=== PATIENT | female | born 1965 | race African-American/Black ===

== ENCOUNTER 2017-02-01 06:49 | Day surgery (SDC) | payer BC ==
[2017-01-27 18:50] VITALS: BMI 36.0
[2017-02-01] MEDS ORDERED: LIDOCAINE HCL/PF 2% SDV 5ML VIAL ONE (07:53)
[2017-02-01] MEDS ORDERED: PROPOFOL 20 ML ONE ×2 (07:53)
[2017-02-01] MEDS ORDERED: MIDAZOLAM HCL 2 MG/2 ML SINGLE DOSE VIAL ONE (07:53)
--- NOTE | 2017-02-01 08:00 | HP ---
History & Physical Update - History History: No Change - Physical Physical: No Change - Assessment Assessment: No Change - Plan Plan: No Change (Consent signed and witnessed. all questions answered)
[2017-02-01] MEDS ORDERED: IBUPROFEN 800 MG/8 ML IJ IVPB ONE (08:13)
[2017-02-01] MEDS ORDERED: DEXAMETHASONE SOD PHOSPHATE 4 MG/1 ML VIAL ONE (08:17)
[2017-02-01] MEDS ORDERED: ONDANSETRON 4 MG/2 ML VIAL ONE (08:17)
[2017-02-01] MEDS ORDERED: ONDANSETRON 4 MG/2 ML VIAL IVPUSH PRN (08:43)
[2017-02-01] MEDS ORDERED: oxyCODONE HCL 5 MG TABLET PO PRN ×2 (08:43→12:03)
[2017-02-01] MEDS ORDERED: LACTATED RINGERS SOLUTION 1,000 ML IV SCH (08:45)
[2017-02-01 09:45] VITALS: TEMP 98
[2017-02-01] MEDS ORDERED: ONDANSETRON 4 MG/2 ML VIAL IVPB PRN (12:03)
[2017-02-01] MEDS ORDERED: IBUPROFEN 800 MG/8 ML IJ IVPB PRN (12:03)
[2017-02-01] MEDS ORDERED: IBUPROFEN 600 MG TABLET (FP) PO PRN (12:03)
--- NOTE | 2017-02-01 12:03 | OP ---
Operative Note - Note: Operative Date: 02/01/17 Pre-Operative Diagnosis: 51 yo P1 with thick 12mm Endometrium, s/p Endometrial ablation in the past Operation: Hysteroscopy, Dialation and curettage Findings: Atrophic Endometrium Post-Operative Diagnosis: Same as Pre-op Surgeon: Bina Jackson Anesthesiologist/FLEXO FOLDER GLUER OPERATOR: Beatriz Artis Anesthesia: MAC Specimens Removed: Endometrial curettings Estimated Blood Loss (mls): 10 Drains & Tubes with Location: Fluid deficit - 390cc Drains, Volume Out (mls): 50 Fluid Volume Replaced (mls): 400 Operative Report Dictated: Yes
[2017-02-01 12:10] VITALS: BP 138/72; PULSE 78
[2017-02-01] MEDS ORDERED: ELECTROLYTE-148 SOLN 1,000 ML IV SCH (12:15)
--- NOTE | 2017-02-02 14:07 | PATH ---
Surgical Pathology Report Patient Name: SALINA RESTREPO [facility]. Rec. #: [id number] /Age/Gender: 1965 (Age: 51) / F Account: [id number] Location: [facility] SURGICAL Taken: 02/01/2017 Received: 02/01/2017 Reported: 02/02/2017 Physicians: Bina Jackson M.D. Specimen(s) Received ENDOMETRIAL CURETTINGS Clinical History Endometrial thickening Final Diagnosis ENDOMETRIUM, CURETTAGE: FRAGMENTS OF INACTIVE ENDOMETRIUM. FRAGMENTS OF BENIGN SMOOTH MUSCLE. FRAGMENTS OF BENIGN ENDOCERVICAL TISSUE WITH SQUAMOUS METAPLASIA. FRAGMENTS OF BENIGN SQUAMOUS EPITHELIUM. Electronically Signed Yuri Owusu M.D. Gross Description Received in formalin labeled "endometrial curettings" is a 1.2 x 1.1 x 0.2 cm aggregate of johnson-pink soft tissue fragments. The formalin is filtered and the specimen is entirely submitted in one cassette. /02/01/2017 saudi02/01/2017
--- NOTE | 2017-02-02 17:27 | OP ---
DATE OF OPERATION: 02/01/2017 PREOPERATIVE DIAGNOSIS: A 52-year-old para 1 with thick endometrium status post endometria ablation. POSTOPERATIVE DIAGNOSIS: A 52-year-old para 1 with thick endometrium status post endometria ablation. OPERATIVE PROCEDURE: Hysteroscopy, dilation and curettage. FINDINGS: Atrophic endometrium. SURGEON: Bina Jackson MD ANESTHESIOLOGIST: Dr. Artis. ANESTHESIA: MAC. DESCRIPTION OF OPERATIVE PROCEDURE: After assuring informed consent, the patient was brought to the operating room, placed in the dorsal lithotomy position. Perineum was prepped and draped in a sterile fashion. A 5-mm hysteroscope was assembled and primed. The bladder was drained under sterile conditions. Anterior cervical lip was articulated with a single-tooth tenaculum. Cervix was dilated with thread dilators up to 17 gauge. The hysteroscope was introduced into the uterus and uterine contents were examined. The endometrium was found to be free of polyps or submucosal fibroids and was found to be atrophic. The hysteroscope was removed and sharp curet was used for dilatation and curettage. Hysteroscope was reintroduced. Uterus was found to be intact and procedure was concluded. Specimens removed were endometrial curettings. All instruments were removed from the cervix and vagina. Estimated blood loss was 10 mL. Urine output was 50 mL. Fluid deficit 390 mL. The patient received 400 mL of IV fluids. Instrument and sponge count was correct x2. The patient was brought to the recovery room in stable condition. Junior [id number]
== END 2017-02-01 12:05 | disposition home or self-care (01) ==
LOC: JASU-SURG 06:49
PROVIDERS: ATTEND Obstetrics & Gynecology
PROC: 0UDB8ZX Extraction of Endometrium, Via Natural or Artificial Opening Endoscopic, Diagnostic (ICD-10-PCS; principal; 2017-02-01 08:00)
DX: N85.8 Other specified noninflammatory disorders of uterus (principal)
CPT/HCPCS: 88305-TC; 94760

== ENCOUNTER 2017-08-02 06:04 | Day surgery (SDC) | payer BC ==
[2017-07-27 13:49] VITALS: BMI 36.2
[2017-08-02] MEDS ORDERED: PROPOFOL 20 ML ONE ×3 (07:25→08:38)
[2017-08-02] MEDS ORDERED: SUCCINYLCHOLINE CHLORIDE 200 MG/10 ML VIAL ONE (07:25)
[2017-08-02] MEDS ORDERED: DEXAMETHASONE SOD PHOSPHATE 4 MG/1 ML VIAL ONE (07:26)
[2017-08-02] MEDS ORDERED: KETOROLAC TROMETHAMINE 30 MG/1 ML VIAL ONE (07:26)
[2017-08-02] MEDS ORDERED: LIDOCAINE HCL/PF 2% SDV 5ML VIAL ONE (07:26)
[2017-08-02] MEDS ORDERED: MIDAZOLAM HCL 2 MG/2 ML SINGLE DOSE VIAL ONE (07:28)
[2017-08-02] MEDS ORDERED: ONDANSETRON 4 MG/2 ML VIAL IVPUSH PRN ×2 (07:51→09:14)
[2017-08-02] MEDS ORDERED: oxyCODONE HCL 5 MG TABLET PO PRN ×2 (07:51→09:14)
[2017-08-02] MEDS ORDERED: LACTATED RINGERS SOLUTION 1,000 ML IV SCH (08:00)
--- NOTE | 2017-08-02 08:25 | HP ---
History & Physical Update - History History: No Change - Physical Physical: No Change - Assessment Assessment: No Change - Plan Plan: No Change (No changes to H&P from 07/13/17 Consent signed and witnessed)
[2017-08-02] MEDS ORDERED: IBUPROFEN 800 MG/8 ML IJ IVPB PRN (09:14)
[2017-08-02] MEDS ORDERED: IBUPROFEN 600 MG TABLET (FP) PO PRN (09:14)
[2017-08-02] MEDS ORDERED: ELECTROLYTE-148 SOLN 1,000 ML IV SCH (09:15)
--- NOTE | 2017-08-02 09:24 | OP ---
Operative Note - Note: Operative Date: 08/02/17 Pre-Operative Diagnosis: 52yo s/p Endometrial ablation with Thick Endometrium Operation: Hysteroscopy, Endometrial Lesion removal, D&C Findings: Endometrial cystic lesion Post-Operative Diagnosis: Same as Pre-op (and Endometrial cystic lesion) Surgeon: Bina Jackson Anesthesiologist/RESPITE CARE PROVIDER: Alan Martinez Anesthesia: MAC Specimens Removed: Endometrial lesion Estimated Blood Loss (mls): 0 Drains & Tubes with Location: Fluid defficit 200cc Drains, Volume Out (mls): 100 Fluid Volume Replaced (mls): 600 Operative Report Dictated: Yes
[2017-08-02 10:33] VITALS: TEMP 98.3
[2017-08-02 11:01] VITALS: PULSE 80
[2017-08-02 12:36] VITALS: BP 141/83
--- NOTE | 2017-08-02 23:33 | OP ---
DATE OF OPERATION: 08/02/2017 PREOPERATIVE DIAGNOSIS: A 52-year-old status post endometrial ablation with thick endometrium. POSTOPERATIVE DIAGNOSIS: A 52-year-old status post endometrial ablation with thick endometrium. Endometrial cystic lesion. OPERATION: Hysteroscopy, endometrial lesion removal, and dilation and curettage. FINDINGS: Endometrial cystic lesion. SURGEON: Leilani Anthony M.D. ANESTHESIOLOGIST: Alan Martinez M.D. ANESTHESIA: MAC SPECIMENS: Removed endometrial cystic lesion. DESCRIPTION OF OPERATIVE PROCEDURE: After insuring informed consent, the patient was brought to the operating room where she was placed in dorsal lithotomy position, perineum and vagina were prepped and draped in sterile fashion. A 5-mm hysteroscope was white balanced and primed. The bladder was drained of 100 mL of urine. The Amin speculums were placed in the vagina, and cervix was visualized, and articulated with a single-toothed tenaculum, and dilated with gradually increasing in size dilators up to the 19 gauge. The 5-mm hysteroscope was introduced into the uterus and uterus was found to be completely atrophic except for left corneal corner contained red cystic lesion of approximately 1.5 cm in size in each dimension. The Truclear resectoscope was introduced into the uterine cavity. It was window locked and the lesion was resected as well as slightly overgrown some parts of the endometrial lining. Subsequently all instruments were removed from the uterus, vagina, and cervix. Excellent hemostasis was achieved. Estimated blood loss was zero. Patient received 600 mL of fluids. Drains 100 mL of urine. Fluid deficit was 200 mL. All sponge, instrument counts were correct x2. Patient was extubated and brought to recovery room in stable condition. LEILANI ANTHONY M.D. MELIA/[id number]
--- NOTE | 2017-08-03 13:59 | PATH ---
Surgical Pathology Report Patient Name: SALINA RESTREPO [facility]. Rec. #: [id number] /Age/Gender: 1965 (Age: 52) / F Account: [id number] Location: [facility] SURGICAL Taken: 08/02/2017 Received: 08/02/2017 Reported: 08/03/2017 Physicians: Bina Jackson M.D. Specimen(s) Received ENDOMETRIAL LESION Clinical History Preoperative diagnosis: Endometrial thickening Postoperative diagnosis: Endometrial lesion Final Diagnosis UTERUS, ENDOMETRIAL LESION, DILATION AND CURETTAGE: SUPERFICIAL FRAGMENTS OF SMOOTH MUSCLE, RARE ACUTE INFLAMMATORY AGGREGATE ADMIXED WITH MUCUS, AND RARE SQUAMOUS CELLS. NO ENDOMETRIAL GLANDS IDENTIFIED. SEE COMMENT. Comment: The fragments of smooth muscle may represent superficial myometrium or submucosal leiomyoma. Suggest clinical correlation. Electronically Signed Kimi Akhtar M.D. Gross Description Received in formalin labeled "endometrial lesion," is a 0.5 x 0.3 x 0.1 cm aggregate of johnson soft tissue fragments. The specimen is entirely submitted in one cassette. /08/02/201708/02/2017
== END 2017-08-02 12:50 | disposition home or self-care (01) ==
LOC: JASU-SURG 06:04
PROVIDERS: ATTEND Obstetrics & Gynecology
PROC: 0UDB8ZX Extraction of Endometrium, Via Natural or Artificial Opening Endoscopic, Diagnostic (ICD-10-PCS; principal; 2017-08-02 08:00)
DX: N71.9 Inflammatory disease of uterus, unspecified (principal)
CPT/HCPCS: 88305-TC; 94760